=== PATIENT | male | born 1950 | race Caucasian/White ===

== ENCOUNTER 2016-12-24 10:30 | Inpatient (IN) | payer OTHER ==
[2016-12-04 08:15] VITALS: BMI 27.0
--- NOTE | 2016-12-04 08:49 | PAT Medication Instructions ---
Service Date Dec 04, 2016. Current Home Medication List Allopurinol (Zyloprim), 100 MG PO QPM Aspirin (Aspirin Chewable), 81 MG PO QPM Atorvastatin (Lipitor), 20 MG PO QPM Cetirizine Hcl (Zyrtec Allergy), 1 TAB PO DAILY PRN for RUNNY NOSE Cimetidine (Tagamet), 400 MG PO DAILY PRN for Indigestion Diphenhydramine Hcl (Benadryl Allergy), 1 CAP PO HS Etodolac (Etodolac), 1 TAB PO BID PRN for Pain Gemfibrozil (Lopid), 600 MG PO BID Levothyroxine Sodium (Levothyroxine Sodium), 1 TAB PO QAM Lisinopril (Zestril), 10 MG PO QAM Metformin Ext Rel (Glucophage Ext Rel), 500 MG PO BID Multivitamin (Multivitamin), 1 TAB PO QAM Morrow-3 Fatty Acids (Fish Oil), 1 CAP PO QPM Ranitidine Hcl (Zantac), 150 MG PO HS PRN for Indigestion Tizanidine (Zanaflex), 4 MG PO Q8H PRN for Pain Trazodone Hcl (Trazodone), 50 MG PO HS Medication Instructions For Your Scheduled Surgery - Check with surgeon for instructions: Etodolac (Etodolac), 1 TAB PO BID PRN for Pain - Hold the following medications 2 weeks prior to surgery: Morrow-3 Fatty Acids (Fish Oil), 1 CAP PO QPM - Hold the following medications 48 hours prior to surgery: Metformin Ext Rel (Glucophage Ext Rel), 500 MG PO BID - Hold the following medications the morning of surgery: Ranitidine Hcl (Zantac), 150 MG PO HS PRN for Indigestion Tizanidine (Zanaflex), 4 MG PO Q8H PRN for Pain Multivitamin (Multivitamin), 1 TAB PO QAM Lisinopril (Zestril), 10 MG PO QAM Gemfibrozil (Lopid), 600 MG PO BID Cimetidine (Tagamet), 400 MG PO DAILY PRN for Indigestion Cetirizine Hcl (Zyrtec Allergy), 1 TAB PO DAILY PRN for RUNNY NOSE - Take the following medications the morning of surgery with a sip of water: Levothyroxine Sodium (Levothyroxine Sodium), 1 TAB PO QAM - Hold the following medications as scheduled the night before surgery: Gemfibrozil (Lopid), 600 MG PO BID - Take the following medications as scheduled the night before surgery: Ranitidine Hcl (Zantac), 150 MG PO HS PRN for Indigestion Tizanidine (Zanaflex), 4 MG PO Q8H PRN for Pain Trazodone Hcl (Trazodone), 50 MG PO HS Cimetidine (Tagamet), 400 MG PO DAILY PRN for Indigestion Diphenhydramine Hcl (Benadryl Allergy), 1 CAP PO HS Cetirizine Hcl (Zyrtec Allergy), 1 TAB PO DAILY PRN for RUNNY NOSE Atorvastatin (Lipitor), 20 MG PO QPM Allopurinol (Zyloprim), 100 MG PO QPM (okay to continue per surgeon) Aspirin (Aspirin Chewable), 81 MG PO QPM If you have any questions please call us at [phone] or [phone] or [phone]
--- NOTE | 2016-12-04 09:18 | DIAGNOSTIC IMAGING REPORT ---
CHEST PREADMISSION(PA/LAT) CLINICAL HISTORY: PAT preoperative evaluation COMPARISON STUDY: No previous studies for comparison. FINDINGS: The bones soft tissues and hemidiaphragms are normal. The cardiomediastinal silhouette is normal. The lungs are clear. The pulmonary vasculature is normal. IMPRESSION: Negative chest. The above report was generated using voice recognition software. It may contain grammatical, syntax or spelling errors. Electronically signed by: Yaakov Cason M.D. 12/04/2016 9:16 AM Dictated Date/Time: 12/04/2016 9:16 AM
[2016-12-04 10:34] LABS: BASO % 0.5 %; BASO ABS # 0.03 K/uL (0-0.2); COMPLETE YES; HEMATOCRIT 42.7 % (42-52); IG% 0.3 %; LYMPH % 26.5 %; LYMPH ABS # 1.58 K/uL (1.2-3.4); MEAN CELL VOLUME 91.4 fL (80-100); MEAN CORPUSCULAR HEMOGLOBIN 30.6 pg (25-34); MEAN CORPUSCULAR HGB CONC 33.5 g/dl (32-36); MEAN PLATELET VOLUME 9.7 fL (7.4-10.4); MONO % 13.1 %; NEUT % 55.6 %; PLATELET COUNT 366 K/uL (130-400); RED BLOOD COUNT 4.67 M/uL (4.7-6.1); WHITE BLOOD COUNT 5.97 K/uL (4.8-10.8)
[2016-12-04 10:43] LABS: BUN/CREATININE RATIO 19.3 (10-20); POTASSIUM 4.7 mmol/L (3.5-5.1)
[2016-12-04 10:47] LABS: PROTHROMBIN TIME (PATIENT) 10.6 SECONDS (9.0-12.0)
[2016-12-04 10:57] LABS: ESTIMATED AVERAGE GLUCOSE 134 mg/dl; HA1C FLAG Normal (Normal)
--- NOTE | 2016-12-20 15:11 | HISTORY & PHYSICAL EXAMINATION ---
DATE OF ADMISSION: 12/24/2016 CHIEF COMPLAINT: Bilateral knee pain, left side greater than right. HISTORY OF PRESENT ILLNESS: The patient is a 66-year-old gentleman from [place] who presents for treatment of his knees. He has got a 10+ year history of bilateral knee pain and discomfort, left side worse than the right. He has been through extensive conservative treatment by various physicians over the time including both steroid shots and viscosupplementation. This became less successful with time. Pain has become more debilitating. He has an ill who is trying to take care of him having more difficulty doing this. He has exhausted all conservative care and would like to have his left knee replaced. Of note, patient does have a history of left knee scope done in the past. He had DVT after that. He had negative coagulation workup done by his medical doctor but was on Coumadin for a year. He is now off. PAST MEDICAL HISTORY: 1. Hypertension. 2. Elevated cholesterol. 3. Diabetes with an A1c of 6.3. 4. Hypothyroidism. 5. History of DVT with a negative clotting workup. 6. Hiatal hernia. PAST SURGICAL HISTORY: 1. Hernia x2. 2. Left knee scope. ALLERGIES: None. CURRENT MEDICINES: 1. Trazodone 50 mg at bedtime. 2. Allopurinol 100 mg once a day. 3. Lipitor 20 mg. 4. Lopid 60 mg twice a day. 5. Levothyroxine 50 mcg a day. 6. Zanaflex 4 mg for spasm. 7. Metformin 500 mg twice a day. 8. Lisinopril 10 mg a day. 9. Etodolac twice a day. 10. Aspirin 81 mg daily. 11. Fish oil. 12. Multivitamin. SOCIAL HISTORY: A 66-year-old male. He is from [place]. He is . FAMILY HISTORY: Blood clots, diabetes, heart disease, emphysema, hypertension. REVIEW OF SYSTEMS: Significant for diabetes, pretty well controlled. Denies any chest pain or shortness of breath. No known bleeding problems. Does have a history of DVT in the past with a negative coagulation workup. PHYSICAL EXAMINATION: GENERAL: Reveals a pleasant, middle-aged male. He looks to be in good health. HEAD, EYES, EARS, NOSE, AND THROAT EXAMINATION: Benign. NECK: Supple. No lymphadenopathy. LUNGS: Clear to auscultation. HEART: Regular rate and rhythm. ABDOMEN: Soft, nontender, nondistended. EXTREMITY EXAMINATION: Grossly neurovascularly intact except as follows: Examination of both knees reveals the patient ambulates with a waddling type gait. Examination of the left knee reveals varus alignment. He has a varus thrust with weightbearing. Small to moderate sized knee effusion. Range of motion 0-125. He does have some laxity to varus valgus stressing. He is neurologically intact. No pain with hip motion. Examination of the right knee reveals moderate varus alignment. He has got varus thrust. Range of motion is 0-120. No instability. X-RAYS: X-rays of both knees reveal advanced bilateral knee DJD. He has got complete loss of medial joint space on both sides. ASSESSMENT: A 66-year-old gentleman with a remote history of a DVT after knee scope in the past with advanced bilateral knee pain and degenerative joint disease. The left side is more symptomatic than the right. He would like to proceed with left knee replacement. He has exhausted all conservative care. PLAN: We are going to take her to the operating room and do a left total knee replacement. The risks and benefits of this procedure were explained to the patient including but not limited to DVT, PE, , infection, neurologic injury, vascular injury, bleeding problem, pain, limited range of motion, stiffness, failure to relieve his symptoms, incomplete relief of symptoms, need for further surgery in the future, fracture, leg length inequality, nerve palsy, etc. The patient understands and desires to proceed. Informed consent was obtained. As far as DVT prophylaxis, we are going to use Xarelto for 30 days postop. He knows to hold his metformin 2 days preoperatively and hold lisinopril the morning of surgery. As far as discharge plans, he is planning to be discharged to home with home nursing agency.
[2016-12-24] VITALS (10 sets, daily range): BP systolic 117–187; BP diastolic 69–92; PULSE 61–88; TEMP 36.3–37.3; O2SAT 94–99; Ht 175.3 cm; Wt 84.6 kg
[~2016-12-24] VITALS: Ht 175.3 cm; Wt 84.6 kg
[~2016-12-24 10:30] MED LIST: ACETAMINOPHEN 500 MG TAB PO SCH; ALLO100T PO; ASPCH81X PO; ATOR-22 PO; ATROPINE SULFATE 0.1 MG/ML 5ML SYR IV PRN; BUPIVACAINE 0.25% 30 ML VIAL ONE; BUPIVACAINE 0.5 % 5 MG/1 ML PF 10ML VIAL ONE; BUPIVACAINE LIPOSOME 266 MG, BUPIVACAINE/EPINEPHRINE INJ 50 ML, SODIUM CHLORIDE 0.9% PF... INFIL SCH; CEFAZOLIN 2000 MG/60 ML D5W 60 ML IV SCH; CETI10TA99 PO; CIME-56 PO; DIPH25CA65 PO; ETOD500T95 PO; EpHEDrine SULFATE INJ 50 MG/ML AMP IV PRN; FAMOTIDINE 20 MG TAB PO SCH; FENTANYL CITRATE INJ 50 MCG/1 ML 2 ML VIAL ONE; GABAPENTIN 300 MG CAP PO SCH; GEMF600T3 PO; LACTATED RINGER'S 1000ML 1,000 ML IV SCH; LACTATED RINGER'S 1000ML 500 ML IV ONE; LEVO50TA6 PO; LISI-461 PO; METFTAB PO; METOCLOPRAMIDE HCL 10 MG TAB PO SCH; MIDAZOLAM HCL 1 MG/ML 2ML VIAL ONE; MULT-506 PO; OMEGCAP2 PO; ONDANSETRON INJ 2 MG/ML 2 ML VIAL IV PRN; RANI150T3 PO; SCOPOLAMINE 1.5 MG TDSY TD SCH; TIZA4CAP PO; TRANEXAMIC ACID INJ 1,000 MG in SODIUM CHLORIDE 0.9% 100ML 100 ML IV SCH; TRAZ50TA35 PO
--- NOTE | 2016-12-24 10:57 | History & Physical Bridge Note ---
H&P Re-Evaluation Bridge Note: I have examined the patient, reviewed the History & Physical and in the interval since the performance of the History & Physical I have noted the following changes of clinical significance: No changes noted
[2016-12-24] MEDS ORDERED: BUPIVACAINE/EPINEPHRINE 0.5% MPF 1:200,000 10 ML VIAL ONE (12:58)
[2016-12-24] MEDS ORDERED: BUPIVACAINE LIPOSOME 1/3% 266 MG/20 ML VIAL INFIL ONE (12:59)
[2016-12-24] MEDS ORDERED: SODIUM CHLORIDE 0.9% PF 50 ML VIAL ONE (12:59)
[2016-12-24] MEDS ORDERED: BACITRACIN 50000 UNIT VIAL ONE (12:59)
[2016-12-24] MEDS ORDERED: MIDAZOLAM HCL 1 MG/ML 2ML VIAL ONE (13:16)
[2016-12-24] MEDS ORDERED: PROPOFOL IV EMULSION 10 MG/ML 20 ML VIAL IV ONE ×2 (13:20→13:41)
[2016-12-24] MEDS ORDERED: CIMETIDINE 400 MG TAB PO PRN (15:00)
[2016-12-24] MEDS ORDERED: DEXTROSE 50% 50 ML SYR IV PRN (15:00)
[2016-12-24] MEDS ORDERED: SILVER SULFADIAZINE 1% CR 50 GM JAR EXT PRN (15:00)
[2016-12-24] MEDS ORDERED: GLUCAGON FOR INJ 1 MG VIAL SQ PRN (15:00)
[2016-12-24] MEDS ORDERED: DiphenhydrAMINE HCL 50 MG/ML VIAL IV PRN (15:00)
[2016-12-24] MEDS ORDERED: BISACODYL 10 MG SUPP PR PRN (15:00)
[2016-12-24] MEDS ORDERED: ZOLPIDEM TARTRATE 5 MG TAB PO PRN (15:00)
[2016-12-24] MEDS ORDERED: MAGNESIUM HYDROXIDE SUSP 30 ML UDC PO PRN (15:00)
[2016-12-24] MEDS ORDERED: METOCLOPRAMIDE HCL INJ 5 MG/ML 2 ML VIAL IV PRN (15:00)
[2016-12-24] MEDS ORDERED: MoRPHine SULFATE 2 MG/ML CARP IV PRN (15:00)
[2016-12-24] MEDS ORDERED: ONDANSETRON INJ 2 MG/ML 2 ML VIAL IV PRN (15:00)
[2016-12-24] MEDS ORDERED: CETIRIZINE HCL 10 MG TAB PO PRN (15:00)
[2016-12-24] MEDS ORDERED: GLUCOSE 10 TABS/TUBE PO PRN (15:00)
[2016-12-24] MEDS ORDERED: ALUMINUM/MAGNESIUM/SIMETH (MAALOX MAX) 30 ML UDC PO PRN (15:00)
[2016-12-24] MEDS ORDERED: GLUCOSE 40% GEL 15 GM TUBE PO PRN (15:00)
--- NOTE | 2016-12-24 15:32 | DIAGNOSTIC IMAGING REPORT ---
LEFT KNEE 1 OR 2 VIEWS ROUTINE CLINICAL HISTORY: 66 years-old Male presenting with status post total knee arthroplasty. TECHNIQUE: Frontal and lateral views of the left knee were obtained. COMPARISON: 11/25/2016. FINDINGS: Interval total left knee arthroplasty. Intra-articular and soft tissue emphysema with overlying skin des. No acute fracture or hardware complication is apparent. No malalignment. IMPRESSION: Expected postoperative appearance status post left total knee arthroplasty. Electronically signed by: Bakari Castro M.D. 12/24/2016 3:31 PM Dictated Date/Time: 12/24/2016 3:30 PM
[2016-12-24] MEDS: SODIUM CHLORIDE 0.9% 1000ML 1,000 ML IV SCH (16:53)
[2016-12-24] MEDS: FERROUS GLUCONATE 324 MG TAB PO SCH (17:54)
[2016-12-24] MEDS: INSULIN HUMAN REGULAR SC SCH ×2 (18:00→21:00)
[2016-12-24] MEDS: KETOROLAC TROMETHAMINE 15 MG/ML VIAL IV. SCH (18:03)
--- NOTE | 2016-12-24 18:25 | [facility] Post Operative Brief Note ---
Immediate Operative Summary Operative Date Dec 24, 2016. Pre-Operative Diagnosis Advanced Left Knee Degenerative Joint Disease Post-Operative Diagnosis Advanced Left Knee Degenerative Joint Disease Procedure(s) Performed Left Total Knee Arthroplasty, Cemented Surgeon Dr. Ozuna Welder Shielded Metal Arc Surgeon(s) Harman Antunez PA-C Estimated Blood Loss 50 mL Findings Left Knee DJD Fluids (cc crystalloids) 2000 cc Specimens A: Left Knee Bone and Tissue Drains None Anesthesia Spinal Complication(s) None Disposition Recovery Room / PACU
--- NOTE | 2016-12-24 18:29 | Anesthesiology Progress Note ---
Anesthesia Post Op Note Date & Time Dec 24, 2016 at 16:09 Vital Signs Pain Intensity: 0 Vital Signs Past 12 Hours Date Time Temp Pulse Resp B/P (MAP) Pulse Ox O2 Delivery O2 Flow Rate FiO2 12/24/16 15:30 60 14 122/71 96 Nasal Cannula 2 12/24/16 15:20 36.0 62 13 113/60 94 Nasal Cannula 2 12/24/16 15:10 70 13 118/74 95 Nasal Cannula 2 12/24/16 15:00 36.8 67 12 111/63 94 Nasal Cannula 2 12/24/16 11:01 37.3 88 18 155/85 94 Room Air Notes Mental Status: alert / awake / arousable, participated in evaluation Pt Amnestic to Procedure: No Nausea / Vomiting: adequately controlled Pain: adequately controlled Airway Patency, RR, SpO2: stable & adequate BP & HR: stable & adequate Hydration State: stable & adequate Neuraxial Anesthesia: was administered, sensory block is resolving Anesthetic Complications: no major complications apparent Anesthetic Complications: level of awareness appropriate for MAC
--- NOTE | 2016-12-24 19:05 | OPERATIVE REPORT ---
DATE OF OPERATION: 12/24/2016 SURGEON: Oscar Ozuna MD BIOLOGY TEACHER: SWETHA Francis PREOPERATIVE DIAGNOSIS: Left knee degenerative joint disease. POSTOPERATIVE DIAGNOSIS: Same. PROCEDURE PERFORMED: Left cemented posterior stabilized total knee arthroplasty. COMPLICATIONS: None. ESTIMATED BLOOD LOSS: 50 mL. FLUID REPLACEMENT: 2000 mL crystalloid fluid replacement. TOURNIQUET TIME: 62 minutes at 300 mmHg. ANESTHESIA: Spinal with adductor canal block. DRAINS: None. SPECIMENS: Left knee sent for pathology. OPERATIVE INDICATIONS: The patient is a 66-year-old very active gentleman, who has had a long history of bilateral knee pain and discomfort. He has been through extensive conservative care on the outside. He is continued to be bothered by persistent pain and discomfort, left knee more so than the right. X-rays showed advanced left knee DJD. The patient elected to proceed with operative treatment. OPERATIVE FINDINGS: Operative findings revealed advanced left knee DJD. He had extensive grade 4 changes in all 3 compartments. He had extensive eburnation of the medial femoral condyle and medial tibial plateau and extensive wear of the posteromedial and tibial plateau. He had osteophytes in all 3 compartments. Large knee joint effusion. He had a fixed varus deformity to his knee. OPERATIVE IMPLANTS: Operative implants consisted of: 1. Biomet Vanguard size 70 left posterior stabilized femoral component. 2. Biomet size 75 tibial tray. 3. A 10-mm posterior stabilized polyethylene insert. 4. A 31 x 8 all poly patella. OPERATIVE PROCEDURE: The patient was taken to the operating room, identified and placed on the operating table in the supine position. All contact areas were appropriately padded. IV antibiotics were provided by anesthesia team. A spinal anesthetic and adductor canal block had been provided in the holding area. A Issa catheter was placed in sterile fashion. The left thigh tourniquet was then placed. The left lower extremity was then prepped and draped in the usual sterile fashion. The left leg was elevated and exsanguinated with Esmarch and tourniquet was placed at 300 mmHg. An anterior approach to the left knee was then performed through a longitudinal incision centered over the patella. Sharp dissection was carried through the subcutaneous tissue down to the level of the extensor mechanism. A medial parapatellar arthrotomy incision was made. Some subperiosteal dissection was carried out medially. The fat pad was resected from beneath the patellar tendon. The lateral patellofemoral ligament was released. The patella was everted and the knee was flexed. The osteophytes were taken off the distal femur. The ACL and PCL were then released from the distal femur and the tibia subluxated anteriorly. The external tibial alignment jig was then placed on the anterior face of the tibia and adjusted 16 mm medially. The proximal tibial cut was made essentially flush with the most deficient aspect of the posterior medial tibial plateau. Some osteophytes were taken off medial and posteromedially. Tibia was sized to a size 75. Attention was then drawn to the femur. The distal femur was entered with a sharp drill. The intramedullary canal was suctioned. A left 6-degree valgus cutting guide was placed. Distal femoral cutting block was pinned in place. Distal femoral cut was made to take an additional 3 mm of bone off the distal femur. The femur was then sized to a size 70. This was downsized just slightly. This sized almost exactly 70. The AP cutting block was pinned parallel to the epicondylar axis, which was 4 degrees of external rotation. The anterior cut, anterior chamfer, posterior cut, and posterior chamfer cuts were made. Box cutting guide was placed and adjusted slightly lateral and the box cut was made. The knee was flexed. The remnants of the medial and lateral menisci were excised. The osteophytes were taken off the posterior aspect of the femur. The tibial tray was pinned in maximum external rotation and the drill and stem punch were used to create defect in proximal tibia for the tibial tray. The knee was then trialed and a 10-mm insert fit most appropriately. Attention was then drawn to the patella. The patella was cleaned of all soft tissues. Patella thickness measured 22 mm and it was cut down to 15. The patella was fairly dense. The patella was sized to a size 31. Lug holes were drilled for the 31 patella. The lateral osteophyte was removed. Patella button was placed. Knee was taken through range of motion and the patella tracked nicely with no thumbs test. Attention was then drawn towards permanent components. A bone plug was placed in the distal femur to limit blood loss. A double batch G cement was mixed. A left size 70 posterior stabilized femoral component, size 75 tibial tray, a 10-mm posterior stabilized polyethylene insert, and a 31 x 8 all poly patella were then cemented in place. Knee was brought out into full extension until cement hardened. A final cement check was then performed. Pericapsular tissues were injected with a total of 75 mL of a combination of 20 mL of Exparel, 25 mL of 0.5% Marcaine with epinephrine and 30 mL of normal saline. The patient did receive 1 gram of tranexamic acid. The tourniquet was then let down for a final tourniquet time of 62 minutes. Hemostasis was assured with the use of electrocautery. The wound was once again irrigated. The extensor mechanism was then closed with a combination of #1 PDS suture and #1 Vicryl suture in a [id number] fashion. Extensor mechanism was checked and found to be intact. The subcutaneous tissues were then closed with 2-0 Dexon suture in a buried interrupted fashion. Skin was closed skin des. Leg was then cleaned and dried and a sterile dressing of Xeroform, 4 x 4, sterile cast padding and Carlos Alberto bandage were applied. The patient then transferred to the recovery room in stable condition. The patient tolerated the procedure well with no complications. All needle and sponge counts were correct at the end of the operation. I attest to the content of the Intraoperative Record and any orders documented therein. Any exceptions are noted below. AVIVAD
[2016-12-24] MEDS ORDERED: ASPIRIN 81 MG CHEW PO SCH (21:00)
[2016-12-24] MEDS ORDERED: ASPIRIN 325 MG ECTAB PO SCH (21:00)
[2016-12-24] MEDS ORDERED: TRANEXAMIC ACID INJ 1,000 MG in SODIUM CHLORIDE 0.9% 100ML 100 ML IV SCH (21:00)
[2016-12-24] MEDS: ALLOPURINOL 100 MG TAB PO SCH (21:13)
[2016-12-24] MEDS: DOCUSATE SODIUM 100 MG CAP PO SCH (21:13)
[2016-12-24] MEDS: SENNA 8.6 MG TAB PO SCH (21:14)
[2016-12-24] MEDS: TRAZODONE HCL 50 MG TAB PO SCH (21:15)
[2016-12-24] MEDS: ATORVASTATIN 20 MG TAB PO SCH (21:16)
[2016-12-24] MEDS: GEMFIBROZIL 600 MG TAB PO SCH (21:16)
[2016-12-24] MEDS: TAPENTADOL ER 50 MG TABCR PO SCH (21:21)
[2016-12-24] MEDS: OXYCODONE HCL IR 5 MG TAB (IMMEDIATE RELEASE) PO PRN (21:22)
[2016-12-24] MEDS: CEFAZOLIN IV 2,000 MG in DEXTROSE 5% 50ML 50 ML IV SCH (21:26)
[2016-12-24] MEDS: ACETAMINOPHEN 500 MG TAB PO SCH (21:26)
[2016-12-24] MEDS ORDERED: MORP-157 PO (21:36)
[2016-12-24] MEDS ORDERED: RXC5 PO (21:36)
[2016-12-24] MEDS ORDERED: ACET-24 PO (21:36)
[2016-12-24] MEDS ORDERED: XRL10 PO (21:36)
--- NOTE | 2016-12-24 21:38 | Discharge Instructions ---
Discharge Instructions Date of Service Dec 24, 2016. Admission Reason for Admission: Left Knee Degenerative Joint Disease Discharge Discharge Diagnosis / Problem: Left Knee Replacement Discharge Goals Goal(s): Decrease discomfort, Improve function, Increase independence, Improve disease control, Therapeutic intervention Activity Recommendations Activity Limitations: per Instructions/Follow-up section Weightbearing Status: Left weightbearing . Instructions / Follow-Up Instructions / Follow-Up ACTIVITY RECOMMENDATIONS: Physical Therapy: * You will go to physical therapy three times each week for four to six weeks after your surgery in order to regain your knee range of motion and to retrain your knee to work properly. * It is just as important to make sure you are getting your knee perfectly straight as it is to regain your knee bend. * Taking a pain pill an hour before therapy can help you have a more productive and comfortable therapy session. Home Exercise: * You were shown a series of exercises (heel props, heel slides, etc.) in the hospital. Do these exercises three to four times each day including the exercises you were shown in physical therapy. Walking: * Get up and walk several times each day. For the first four weeks, try not to stand or walk for more than one hour at a time. If you do stand or walk for more than one hour, you will not hurt anything, but your knee and leg will likely swell. * As you feel comfortable, you may change from the walker or crutches to a cane and then to independent walking. MEDICATIONS: New Medicine: * You will likely be taking one or more of these medications: 1. MS Contin - A long-acting pain medication. Take 1 tablet twice a day for the first ten days to decrease your baseline level of pain. 2. Oxycodone - A quick and shorter-acting pain medication. Take one to two tablets every four to six hours to lessen your pain. 3. Aspirin - Thins your blood to lessen the chance of forming a blood clot. * The most common side effects of pain medicine and iron are nausea and constipation. If nausea or constipation is too much of a problem or if you have any questions about your new medicines or doses, call [facility] at [phone]. We will try to help you manage these issues. VERY IMPORTANT TO READ AND REVIEW" Pain: * The immediate post-operative period after knee replacement surgery is often quite painful. * You are given a prescription for pain medicine. You should take it, as directed, when you need it, especially before physical therapy and before going to bed. Pain that interferes with sleep is very common and can last several months. * You will likely need pain medicine for the first four to six weeks. It will not stop all of the pain. The pain will lessen and as you feel better, you may change to milder pain medicine such as Tylenol. * The most common side effects of pain medicine are nausea and constipation, so don't take more than you need. SPECIAL CARE INSTRUCTIONS: TEDs/Elastic Stockings: * The white elastic stockings help limit swelling and prevent blood clots from forming in your legs. The more you wear them, the more they work. * Wear them for six weeks after knee replacement surgery and four weeks after partial knee replacement. Prevention of Infection: * Take antibiotics one hour before any dental cleaning, dental work, urological procedure, gastrointestinal procedure or any invasive surgery in order to prevent your new joint from getting infected. * You may get the antibiotics from the doctor performing the procedure or you may call our office at before and we will call in a prescription to the pharmacy of your choice. Things to Watch For: * Drainage from the incision site that occurs more than one week after your surgery. * Severely increased knee/leg pain or swelling. * Increased redness at the incision site. * Fever above 102 degrees Fahrenheit. * Unusual chest pain or shortness of breath. * Unusual pain or burning with urination. Call [facility] at with any of the above problems or if you have any questions about your medicines or recovery. FOLLOW UP VISIT: Make an appointment to see your doctor for approximately two weeks after surgery for a progress check and staple removal by calling the office at . Current Hospital Diet Patient's current hospital diet: Diabetes Type 2 Diet Discharge Diet Recommended Diet: Diabetes Type 2 Diet Procedures Procedures Performed: Left Total Knee Arthroplasty, Cemented Pending Studies Studies pending at discharge: no Laboratory Results Hemoglobin A1c Test 12/04/16 08:55 Range/Units Estimated Average Glucose 134 mg/dl Hemoglobin A1c 6.3 H 4.5-5.6 % Medical Emergencies . Who to Call and When: Medical Emergencies: If at any time you feel your situation is an emergency, please call 911 immediately. . Non-Emergent Contact Non-Emergency issues call your: Surgeon . "Provider Documentation" section prepared by Oscar Ozuna. . VTE Core Measure Inpt VTE Proph given/why not?: Other Anticoagulation, T.E.D. Stockings, SCD's
[2016-12-25] VITALS (9 sets, daily range): BP systolic 114–130; BP diastolic 65–68; PULSE 73–93; TEMP 36.8–38.3; O2SAT 92–96
[2016-12-25] MEDS: SODIUM CHLORIDE 0.9% 1000ML 1,000 ML IV SCH ×2 (00:25→11:13)
[2016-12-25] MEDS: KETOROLAC TROMETHAMINE 15 MG/ML VIAL IV. SCH ×5 (00:27→23:55)
[2016-12-25] MEDS: LEVOTHYROXINE 50 MCG TAB PO SCH (06:19)
[2016-12-25] MEDS: ACETAMINOPHEN 500 MG TAB PO SCH ×3 (06:19→21:42)
[2016-12-25] MEDS: CEFAZOLIN IV 2,000 MG in DEXTROSE 5% 50ML 50 ML IV SCH (06:20)
[2016-12-25 06:58] LABS: HEMATOCRIT 36.2 % (42-52); MEAN CELL VOLUME 90.7 fL (80-100); MEAN CORPUSCULAR HEMOGLOBIN 31.1 pg (25-34); MEAN CORPUSCULAR HGB CONC 34.3 g/dl (32-36); MEAN PLATELET VOLUME 9.1 fL (7.4-10.4); PLATELET COUNT 264 K/uL (130-400); RED BLOOD COUNT 3.99 M/uL (4.7-6.1); WHITE BLOOD COUNT 7.02 K/uL (4.8-10.8)
[2016-12-25 07:25] LABS: BUN/CREATININE RATIO 14.4 (10-20); CALCIUM 8.3 mg/dl (8.5-10.1); CREATININE 1.2 mg/dl (0.60-1.40); POTASSIUM 4.3 mmol/L (3.5-5.1)
[2016-12-25] MEDS: INSULIN HUMAN REGULAR SC SCH ×4 (08:00→21:51)
--- NOTE | 2016-12-25 08:17 | Orthopedic Progress Note ---
Orthopedic Progress Note Date of Service Dec 25, 2016. Subjective Post OP Day: 1 Additional Notes: Doing well. Pain controlled. Denies chest pain or SOB. He was seen and examined by Dr. Ozuna today Objective N/V intact, dressing C/D/I, A&O x3, toes mobile Date Time Temp Pulse Resp B/P (MAP) Pulse Ox O2 Delivery O2 Flow Rate FiO2 12/25/16 03:49 37.2 73 14 120/65 (83) 95 Room Air 12/25/16 00:00 Nasal Cannula 2.0 12/24/16 23:15 37.3 74 14 117/69 (85) 96 Nasal Cannula 2.0 12/24/16 22:20 145/84 (104) 12/24/16 21:30 37.3 79 16 187/92 (123) 99 Nasal Cannula 2.0 12/24/16 20:34 37.1 71 16 131/73 (92) 96 Room Air 12/24/16 18:45 37.1 71 16 131/80 (97) 97 Nasal Cannula 2.0 12/24/16 17:46 37.1 64 16 149/84 (105) 99 Nasal Cannula 2.0 12/24/16 16:45 36.5 65 16 143/80 (101) 99 Nasal Cannula 2.0 12/24/16 16:19 36.3 61 16 127/72 (90) 99 Nasal Cannula 2.0 12/24/16 15:45 Nasal Cannula 2.0 12/24/16 15:45 36.4 62 16 126/78 (94) 94 Nasal Cannula 2.0 12/24/16 15:45 Nasal Cannula 2.0 12/24/16 15:30 60 14 122/71 96 Nasal Cannula 2 12/24/16 15:20 36.0 62 13 113/60 94 Nasal Cannula 2 12/24/16 15:10 70 13 118/74 95 Nasal Cannula 2 12/24/16 15:00 36.8 67 12 111/63 94 Nasal Cannula 2 12/24/16 11:01 37.3 88 18 155/85 94 Room Air Laboratory Results 24 Hours: Test 12/25/16 06:21 Hematocrit 36.2 % Hemoglobin 12.4 g/dL Assessment & Plan Assessment: POD #1 LEFT TKA Discharge Planning Discharge Planning: home with home health Pain Management: other (PAIN CONTROLLED WITH CURRENT MANAGEMENT ) DVT Prophylaxis: TEDs, SCDs, Xarelto Therapy: Physical Therapy ([facility] )
[2016-12-25] MEDS: GEMFIBROZIL 600 MG TAB PO SCH ×2 (08:41→21:41)
[2016-12-25] MEDS: PANTOprazole SOD 40 MG TAB PO SCH (08:41)
[2016-12-25] MEDS: MULTIVITAMIN TAB PO SCH (08:41)
[2016-12-25] MEDS: DOCUSATE SODIUM 100 MG CAP PO SCH ×2 (08:42→21:41)
[2016-12-25] MEDS: FERROUS GLUCONATE 324 MG TAB PO SCH ×3 (08:42→17:17)
[2016-12-25] MEDS: LISINOPRIL 10 MG TAB PO SCH (08:42)
[2016-12-25] MEDS: TAPENTADOL ER 50 MG TABCR PO SCH ×2 (08:44→21:41)
[2016-12-25] MEDS ORDERED: MULTIVITAMIN TAB PO SCH (09:00)
[2016-12-25] MEDS: OXYCODONE HCL IR 5 MG TAB (IMMEDIATE RELEASE) PO PRN ×3 (12:04→20:05)
[2016-12-25] MEDS: RIVAROXABAN 10 MG TAB PO SCH (16:14)
[2016-12-25] MEDS ORDERED: NURSING DECISION MEDICATION ORDER SCH (17:45)
[2016-12-25] MEDS: ATORVASTATIN 20 MG TAB PO SCH (21:42)
[2016-12-25] MEDS: TRAZODONE HCL 50 MG TAB PO SCH (21:42)
[2016-12-25] MEDS: ALLOPURINOL 100 MG TAB PO SCH (21:43)
[2016-12-25] MEDS: SENNA 8.6 MG TAB PO SCH (21:43)
[2016-12-26] MEDS: LEVOTHYROXINE 50 MCG TAB PO SCH (05:38)
[2016-12-26] MEDS: ACETAMINOPHEN 500 MG TAB PO SCH (05:38)
[2016-12-26] MEDS: KETOROLAC TROMETHAMINE 15 MG/ML VIAL IV. SCH ×2 (05:38→12:22)
[2016-12-26 06:58] VITALS: BP 126/73; PULSE 79; TEMP 37.1; O2SAT 92
[2016-12-26] MEDS: INSULIN HUMAN REGULAR SC SCH ×2 (08:00→12:00)
[2016-12-26] MEDS: FERROUS GLUCONATE 324 MG TAB PO SCH ×2 (08:29→12:42)
[2016-12-26] MEDS: TAPENTADOL ER 50 MG TABCR PO SCH (08:30)
[2016-12-26] MEDS: PANTOprazole SOD 40 MG TAB PO SCH (08:30)
[2016-12-26] MEDS: MULTIVITAMIN TAB PO SCH (08:30)
[2016-12-26] MEDS: LISINOPRIL 10 MG TAB PO SCH (08:30)
[2016-12-26] MEDS ORDERED: HYDROCORTISONE 1% CR 30 GM TUBE EXT PRN (08:45)
--- NOTE | 2016-12-26 09:13 | Orthopedic Progress Note ---
Orthopedic Progress Note Date of Service Dec 26, 2016. Subjective Post OP Day: 2 Additional Notes: Pain controlled. Has a rash on his back he feels is from sweating and laying on his back. Objective N/V intact, dressing C/D/I, A&O x3, toes mobile rash present on his back Date Time Temp Pulse Resp B/P (MAP) Pulse Ox O2 Delivery O2 Flow Rate FiO2 12/26/16 07:13 Room Air 12/26/16 06:58 37.1 79 18 126/73 (90) 92 Room Air 12/25/16 22:56 36.8 93 17 117/67 (84) 92 Room Air 12/25/16 22:00 37.6 12/25/16 19:40 Room Air 12/25/16 17:16 38.3 12/25/16 17:15 36.9 12/25/16 15:37 37.7 88 18 114/66 (82) 94 Room Air 12/25/16 12:06 37.6 90 16 130/66 (87) 95 Room Air Assessment & Plan Assessment: POD #2 LEFT TKA Plan: He was seen and examined by Dr. Hall today as well. We will give him some hydrocortisone cream for the rash. Discharge Planning Discharge Planning: home with home health Pain Management: other (PAIN CONTROLLED WITH CURRENT MANAGEMENT ) DVT Prophylaxis: TEDs, SCDs, Xarelto Therapy: Physical Therapy ([facility] )
[2016-12-26] MEDS ORDERED: HYDR1OIN EXT (09:15)
[2016-12-26] MEDS: GEMFIBROZIL 600 MG TAB PO SCH (09:22)
[2016-12-26] MEDS: DOCUSATE SODIUM 100 MG CAP PO SCH (09:22)
[2016-12-26] MEDS: RIVAROXABAN 10 MG TAB PO SCH (09:22)
[2016-12-26 09:57] VITALS: BP 126/73; PULSE 79; TEMP 37.1; O2SAT 92
--- NOTE | 2017-01-06 07:48 | DISCHARGE SUMMARY ---
ADMITTING PHYSICIAN AND SURGEON: Dr. Ozuna. ADMITTING DIAGNOSIS: Left knee degenerative joint disease. SURGERY PERFORMED: Left total knee arthroplasty. SECONDARY DIAGNOSES: Hypertension, elevated cholesterol, diabetes, hypothyroidism, history of DVT, hiatal hernia. HISTORY AND PHYSICAL EXAMINATION: Well documented in the patient's chart. HOSPITAL COURSE: The patient was admitted on 12/24/2016 underwent total knee arthroplasty. He tolerated the procedure well. There were no complications. He was transferred to PACU postoperatively and later to the orthopedic floor for further care. He was given Ancef for antibiotic prophylaxis, ALMA stockings, SCDs and Xarelto for DVT prophylaxis. Hemoglobin, hematocrit and vital signs were monitored during his hospital stay and remained stable. He did not require any blood transfusions. There were no complications. He did develop a rash on his back postoperatively which he was given some hydrocortisone cream for. No complications. By postoperative day 2, he was tolerating a diabetic diet. Pain was controlled with oral pain medicine. He was participating in physical therapy and had no signs or symptoms of deep vein thrombosis. On postop day 2, he was discharged home and set up with home health services, given printed discharge instructions including prescriptions for extra strength Tylenol, topical hydrocortisone cream for rash, oxycodone and Xarelto. Continue his home medications, continue physical therapy, weightbearing as tolerated, ALMA stockings. Follow up in 10-12 days or sooner if there are any problems or concerns.
== END 2016-12-26 13:30 | disposition home health service (06) | DRG 470 ==
LOC: EDBD → C.ACU 10:30 → C.3E 11:15 → ENRESERV 15:11
PROVIDERS: ADMIT Orthopaedic Surgery Sports Medicine; ATTEND Orthopaedic Surgery Sports Medicine
PROC: 0SRD0J9 Replacement of Left Knee Joint with Synthetic Substitute, Cemented, Open Approach (ICD-10-PCS; principal; 2016-12-24 12:30)
DX: M17.0 Bilateral primary osteoarthritis of knee (principal); M21.162 Varus deformity, not elsewhere classified, left knee; M25.462 Effusion, left knee; R21 Rash and other nonspecific skin eruption; I10 Essential (primary) hypertension; E11.9 Type 2 diabetes mellitus without complications; E03.9 Hypothyroidism, unspecified; E78.00 Pure hypercholesterolemia, unspecified; K21.9 Gastro-esophageal reflux disease without esophagitis; M10.9 Gout, unspecified; G47.00 Insomnia, unspecified; F32.9 Major depressive disorder, single episode, unspecified; Z87.891 Personal history of nicotine dependence; Z86.718 Personal history of other venous thrombosis and embolism; Z79.82 Long term (current) use of aspirin; Z79.84 Long term (current) use of oral hypoglycemic drugs; Z79.899 Other long term (current) drug therapy